=== PATIENT | female | born 1965 | race Hispanic/Latino ===

== ENCOUNTER 2020-06-14 11:08 | Emergency (ER) | payer OTHER ==
[~2020-06-14] VITALS: Ht 175.3 cm; Wt 112.0 kg
--- NOTE | 2020-06-14 11:41 | Diagnostic Imaging Report ---
FINGER RT - HOPD - Multiple views HISTORY: pain s/p fall COMPARISON: None available. FINDINGS: Bones: No acute displaced fracture. Osseous alignment is within normal limits. Joints: The joint spaces are well-maintained. Soft tissues: The soft tissues appear unremarkable. IMPRESSION: No acute radiographic abnormality. Signed by: Francisco J Ang MD on 06/14/2020 11:37 AM
--- NOTE | 2020-06-14 12:10 | Emergency Department Note ---
History of Present Illnes History of Present Illness Chief Complaint: Extremity Trauma/Pain History of Present Illness This is a 54 year old right handed female who presents with right pinky pain status post fall yesterday. Patient states she tripped on her sandals, and fell towards her right on her outstretched right hand. She denies any other injuries. She denies hitting her head or any loss of consciousness. She denies any numbness tingling or weakness of her right hand. 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 Any updates have been documented here. Past Medical History Recent Fever: No Clinical Suspicion of Infectio: No New/Unexplained Change in Ment: No Past Medical History: Diabetes, Hypothyroidism, Hyperlipedemia Past Surgical History: Hysterectomy Social History Smoking Cessation: Never Smoker Counseling Performed: No Alcohol Use: None Any Illegal Drug Use: No Physically hurt or threatened: No Other Any Pre-Existing Lines (PICC,: No Review of Systems Review of Systems Constitutional: Reports no symptoms Cardiovascular: Reports no symptoms Respiratory: Reports no symptoms Gastrointestinal: Reports no symptoms Musculoskeletal: Reports as per HPI (right little finger pain) Neurological: Reports no symptoms Psychological: Reports no symptoms Physical Exam Related Data Triage Vital Signs Vital Signs Date Time Temp Pulse Resp B/P (MAP) Pulse Ox O2 Delivery O2 Flow Rate FiO2 06/14/20 11:18 98.3 73 18 129/80 97 Room Air Physical Exam CONSTITUTIONAL Constitutional: Present well-developed, Present well-nourished HENT HENT: Present normocephalic, Present atraumatic, Present oropharynx clear/moist, Present nose normal EYES NECK PULMONARY Pulmonary: Present effort normal, Present breath sounds normal CARDIOVASCULAR Cardiovascular: Present regular rhythm, Present heart sounds normal, Present capillary refill normal, Present normal rate GASTROINTESTINAL Abdominal: Present soft, Present nontender, Present bowel sounds normal GENITOURINARY SKIN Skin: Present warm, Present dry, Present bruising (over right little finger proximal phalanx) MUSCULOSKELETAL Musculoskeletal: Present tenderness (over proximal phalanx of her pinky finger of her right hand.), Present swelling (mild swelling of her right), Present other (She Has pain with movement of the PIP joint of her right pinky finger. He has full range of motion of her DIP joint and MP joint of her right pinky finger.); Absent deformity NEUROLOGICAL Neurological: Present alert, Present no gross motor or sensory deficits (median, ulnar, and lateral radial distribution of rt hand with no numbness or tingling) PSYCHOLOGICAL Psychological: Present mood/affect normal Results Imaging Imaging Comments Procedure: [id number] HOPD/FINGER RT - [facility] Exam Date: 06/14/20 Exam Time: 1122 REPORT STATUS: Signed FINGER RT - H[facility]D - Multiple views HISTORY: pain s/p fall COMPARISON: None available. FINDINGS: Bones: No acute displaced fracture. Osseous alignment is within normal limits. Joints: The joint spaces are well-maintained. Soft tissues: The soft tissues appear unremarkable. IMPRESSION: No acute radiographic abnormality. Signed by: Francisco J Rainey MD on 06/14/2020 11:37 AM Dictated By: FRANCISCO J RAINEY MD [id number] Transcribed By: ROSEANN on 06/14/20 1137 Assessment & Plan Medical Decision Making MDM Differential includes but is not limited to contusion, fracture, sprain, strain. Assessment & Plan Final Impression: (1) Contusion (2) Contusion of little finger without damage to nail (3) Contusion of little finger (4) Injury of little finger Last Vital Signs Date Time Temp Pulse Resp B/P (MAP) Pulse Ox O2 Delivery O2 Flow Rate FiO2 06/14/20 11:18 98.3 73 18 129/80 97 Room Air ANAHI WYNNE MD Jun 14, 2020 11:37
== END 2020-06-14 12:05 | disposition home or self-care (01) ==
LOC: FSED 11:20
DX: S60.051A Contusion of right little finger without damage to nail, initial encounter (principal); W01.0XXA Fall on same level from slipping, tripping and stumbling without subsequent striking against object, initial encounter; E11.9 Type 2 diabetes mellitus without complications; E03.9 Hypothyroidism, unspecified; E78.5 Hyperlipidemia, unspecified
CPT/HCPCS: 99283

== ENCOUNTER 2021-01-29 18:37 | Emergency (ER) | payer OTHER ==
[~2021-01-29] VITALS: Ht 175.3 cm; Wt 112.0 kg
[2021-01-29] MEDS ORDERED: TETANUS/DIPHTHERIA TOX ADULT 0.5 ML SYR IM ONE (19:30)
[2021-01-29] MEDS ORDERED: TETANUS/DIPHTHERIA TOX ADULT 0.5 ML SYR ONE (19:30)
== END 2021-01-29 19:42 | disposition home or self-care (01) ==
LOC: FSED 19:10
DX: S70.312A Abrasion, left thigh, initial encounter (principal); W54.0XXA Bitten by dog, initial encounter; Y92.008 Other place in unspecified non-institutional (private) residence as the place of occurrence of the external cause; E11.9 Type 2 diabetes mellitus without complications; E78.5 Hyperlipidemia, unspecified; E03.9 Hypothyroidism, unspecified
CPT/HCPCS: 90471; 90714; 99283